=== PATIENT | female | born 2000 | race Caucasian/White ===

== ENCOUNTER 2022-12-08 06:50 | Day surgery (SDC) | payer OTHER, BC ==
[~2022-12-08] VITALS: Ht 160 cm; Wt 79.5 kg
[~2022-12-08 06:50] MED LIST: CLARITIN10 M2 PO; FLONASE ALLERG9.9 ML; MUCINEX600 MG PO; PRILOSEC OTC20 MG PO; PROMETHAZINE12.5 M1 PO; SUDAFED 12 HOU120 MG PO
[2022-12-08] MEDS ORDERED: PROCHLORPERAZIN10 MG PO (07:35)
[2022-12-08] MEDS ORDERED: IBUPROFEN600 MG PO (10:03)
[2022-12-08] MEDS ORDERED: ACETAMINOPHEN500 MG PO (10:04)
[2022-12-08] MEDS ORDERED: OXYCODON-ACETA1 EAC2 PO (10:04)
--- NOTE | 2022-12-08 10:41 | NUR ---
12/08/22 1041 Zoey Quinn [id number] PT ARRIVED IN PACU SLEEPY WITH NO C/O'S. 1006 C/O ABD PAIN 5/10. FENTANYL 50MCG GIVEN IVP. 1010 TAKING SIPS OF WATER. 1014 PAIN DOWN TO 4.5/10. FENTANYL 50MCG GIVEN IVP. 1025 PAIN DOWN TO 3/10. TAKING SIPS OF WATER. 103O BANDAIDE'S APPLIED TO SCOPE SITES ON ABD OVER STERI STRIPS TO KEEP IN PLACE. 1035 TO DS VIA STRETCHER. REPORT GIVEN TO [facility].
--- NOTE | 2022-12-08 10:44 | NUR ---
PT BACK TO DS FROM PACU AWAKE AND ALERT DENIES PAIN OR NAUSEA. PT EATING JELLO APPLESAUSE, CRACKERS AND DRINKING WATER TOLERATES WELL. HER AND HER MOM ARE AT BEDSIDE. BLANKETS PLACED ON PT. CALL LIGHT WITHIN REACH.
--- NOTE | 2022-12-08 11:01 | NUR ---
1050 PT REPORTS PAIN 5/10 REPORTS PAIN IS UNBEARABLE, PT CRYING AND GRIMMISING. PERCOCET GIVEN.
--- NOTE | 2022-12-08 11:57 | NUR ---
PT AMBULATED TO BATHROOM WITH MINIMAL ASSIST, SHE VOIDED 400ML OF CLEAR YELLOW URINE. PT HELPED BACK INTO BED. INCISIONS CLEAN AND DRY. PT REPORTS PAIN 3/10, STATES PAIN IS BETTER.
--- NOTE | 2022-12-08 12:27 | NUR ---
PT COMPLAINS OF NAUSEA COMOAZINE ORDER FROM DR FONSECA.
--- NOTE | 2022-12-08 12:49 | NUR ---
1230 PT REPORTS SHE WANTS TO GO HOME AND SLEEP. SHE WAS ABLE TO DRESS HERSELF. DISCHARGE INSTRUCTIONS GIVEN TO HER AND HER . BOTH VOICED UNDERSTANDING. PT STATES NAUSEA AND PAIN ARE BETTER.
--- NOTE | 2022-12-08 12:55 | NUR ---
1235 INCISION HAVE SMALL AMOUNT OF RED DRY BLOOD ON STERI STRIPS, NO ACTIVE BLEEDING.
--- NOTE | 2022-12-08 17:43 | OR ---
[facility] [address], [place] [address] Signed DATE OF OPERATION: 12/08/2022 SURGEON: Patricia Fonseca MD PREOPERATIVE DIAGNOSIS: Symptomatic gallstones. POSTOPERATIVE DIAGNOSIS: Chronic cholecystitis with gallstones. PROCEDURE: Laparoscopic cholecystectomy with attempted but failed intraoperative cholangiogram. ANESTHESIA: General endotracheal, Noam Canales and local 0.25% Marcaine with epinephrine 10 mL. INDICATION: This 22-year-old white woman is a patient of Mary Carmen Alonso and is from [place], [place]. She has had symptoms highly suggestive of biliary colic. She underwent a gallbladder ultrasound on November 20, 2022 under my direction, which confirmed a 1.1 cm echogenic stone in the gallbladder neck with shadowing. She was originally referred for consideration of upper endoscopy, though she had been unresponsive to PPI medication. On the basis of her findings and clinical history, it is most probable that she has chronic calculous cholecystitis rather than peptic disease and on that basis, she has been recommended for cholecystectomy preferably by a laparoscopic approach. The risk of bleeding, infection, bile duct injury, need for open procedure and of course failure to cure her symptoms was reviewed. She and her understand this and wished to proceed. FINDINGS: The gallbladder was chronically inflamed. The liver was normal. Attempts at cholangiogram were unsuccessful through the very small cystic duct which would not accommodate the cholangiocatheter. The gallbladder once excised showed chronic inflammatory change of the mucosa in a single 1 cm gallstone that was mulberry shaped and yellow in color. DESCRIPTION OF PROCEDURE: The patient was brought to the operating room, and given a general endotracheal anesthetic. Preoperative antibiotic Ancef was given. Sequential compression device stockings were used and heparin subcutaneously administered. The abdomen was prepared Electronically Signed By: PATRICIA FONSECA MD 12/08/22 1743 PATIENT NAME: CHASIDY AGUILAR OPERATIVE REPORT DATE OF : 00 REPORT #: [id number] PHYSICIAN: PATRICIA FONSECA MD PCP: MARY CARMEN ALONSO MD REPORT IS CONFIDENTIAL AND NOT TO BE RELEASED WITHOUT AUTHORIZATION [facility] [address], [place] [address] Signed with a chlorhexidine solution and draped sterilely. An infraumbilical incision was made and using an open Thomas cannula technique the abdomen was entered and pneumoperitoneum achieved to level of 14 mmHg of carbon dioxide gas. Intra-abdominal inspection showed no sign of ascites or carcinomatosis. The liver was normal. The gallbladder had chronic inflammatory change with a dull aguilar appearance. Three additional trocars were placed in usual configuration in the subxiphoid, right midclavicular, and right anterior axillary line. The gallbladder was elevated cephalad and retracted laterally. Using blunt electrocautery dissection, the cystic duct was dissected free with good visualization. The cystic duct was quite small in diameter. The clip was applied across the gallbladder cystic duct junction and a transverse choledochotomy was made in the cystic duct. Given the small size of the duct and was inadequate, an additional choledochotomy was made. Many attempts insinuating the catheter into the cystic duct were unsuccessful. Ultimately the duct distracted. A good remnant of duct was remained, but further attempts at cholangiogram were deemed inadvisable. The cystic duct was triply clipped and the gallbladder then dissected free in a retrograde fashion using electrocautery. The gallbladder was extracted through the infraumbilical port site without problem, passed to the back table where it was opened and a single 1 cm mulberry yellow gallstone was noted as well as chronic inflammatory change of the mucosa. There was no sign of malignancy. Irrigation was undertaken of the subhepatic space. There was no sign of bile leak, bleeding or other problems. The trocar was removed under direct visualization showing no bleeding. The infraumbilical fascial incision was reapproximated with interrupted 0 Vicryl suture. 10 mL of 0.25% Marcaine with epinephrine was injected locally. The skin was closed with interrupted 3-0 Vicryl. Steri-Strips were applied. The patient was ultimately extubated and transferred to the recovery room in good condition having suffered no complications. Sponge, needle, and instrument counts was reported as correct x3. Patricia Fonseca MD /MODL /[id number] cc: Santiago Kim Electronically Signed By: PATRICIA FONSECA MD 12/08/22 1743 PATIENT NAME: CHASIDY AGUILAR OPERATIVE REPORT DATE OF : 00 REPORT #: [id number] PHYSICIAN: PARTICIA FONSECA MD PCP: MARY CARMEN ALONSO MD REPORT IS CONFIDENTIAL AND NOT TO BE RELEASED WITHOUT AUTHORIZATION [address] [address] Signed Copies: ~ Electronically Signed By: PATRICIA FONSECA MD 12/08/22 1743 PATIENT NAME: CHASIDY AGUILAR [facility] REPORT DATE OF : 00 REPORT #: [id number] PHYSICIAN: PATRICIA FONSECA MD PCP: MARY CARMEN ALONSO MD REPORT IS CONFIDENTIAL AND NOT TO BE RELEASED WITHOUT AUTHORIZATION
== END 2022-12-08 12:35 | disposition home or self-care (01) ==
LOC: DS 06:50
PROVIDERS: ATTEND Surgery
PROC: 0FT44ZZ Resection of Gallbladder, Percutaneous Endoscopic Approach (ICD-10-PCS; 2022-12-08)
PROC: 0FT44ZZ Resection of Gallbladder, Percutaneous Endoscopic Approach (ICD-10-PCS; principal; 2022-12-08 09:00)
DX: K80.10 Calculus of gallbladder with chronic cholecystitis without obstruction (principal); J45.909 Unspecified asthma, uncomplicated
CPT/HCPCS: J0131; J0330; J0690; J0780; J1100; J1200; J1644; J1885; J2250; J2405; J2704; J3010; J3475; J7121